=== PATIENT | male | born 1995 | race Caucasian/White ===

== ENCOUNTER 2024-04-27 00:21 | Emergency (ER) | payer MEDICAID, OTHER ==
[2024-04-27] MEDS: Diphtheria,Pertussis(Acell),Tetanus Vaccine 0.5 ML Syringe IM ONE (00:50)
[2024-04-27] MEDS: Ibuprofen 600 MG Tab PO ONE (00:50)
== END 2024-04-27 01:26 | disposition home or self-care (01) ==
LOC: MW.ED 00:21
DX: S91.332A Puncture wound without foreign body, left foot, initial encounter (principal); Z23 Encounter for immunization; Z75.8 Other problems related to medical facilities and other health care; W22.8XXA Striking against or struck by other objects, initial encounter; Y93.89 Activity, other specified; Y99.0 Civilian activity done for income or pay
CPT/HCPCS: 73630; 90471; 90715; 99283; A9270

== ENCOUNTER 2024-06-10 23:21 | Emergency (ER) | payer MEDICAID ==
[2024-06-11] MEDS: Tetracaine HCl/PF 0.5% 4 ML Bottle EYELF ONE (00:46)
== END 2024-06-11 02:48 | disposition home or self-care (01) ==
LOC: MW.ED 23:21
DX: Z77.098 Contact with and (suspected) exposure to other hazardous, chiefly nonmedicinal, chemicals (principal)
CPT/HCPCS: 99283; J3490